=== PATIENT | male | born 1995 ===

== ENCOUNTER 2017-12-04 08:32 | Emergency (ER) | payer OTHER ==
--- NOTE | 2017-12-04 08:43 | UC ---
Respiratory Complaint HPI - HPI Summary HPI Summary: 21 yo male presents with 1 month of sinus pain/pressure/congestion and dry cough. Over the last 4 days has developed a sore throat and b/l ear pain. Has been taking mucinex and zyrtec daily with no relief. Denies fever, chills, SOB, chest pain, abdominal pain, n/v. - History of Current Complaint Stated Complaint: COUGH, SORE THROAT Time Seen by Provider: 12/04/17 08:42 Hx Obtained From: Patient Onset/Duration: Gradual Onset Severity Initially: Mild Severity Currently: Moderate Pain Intensity: 4 Pain Scale Used: 0-10 Numeric Character: Cough: Nonproductive - Allergies/Home Medications Allergies/Adverse Reactions: Allergies Allergy/AdvReac Type Severity Reaction Status Date / Time No Known Allergies Allergy Verified 12/04/17 08:45 Home Medications: Home Medications Cetirizine* [ZyrTEC 10 MG TAB*] 10 mg PO DAILY PRN 12/04/17 [History Confirmed 12/04/17] guaiFENesin [Mucinex] 600 mg PO DAILY PRN 12/04/17 [History Confirmed 12/04/17] PMH/Surg Hx/FS Hx/Imm Hx - Additional Past Medical History Additional PMH: None Previously Healthy: Yes - Surgical History Surgical History: None - Family History Known Family History: Positive: None - Social History Occupation: Student Lives: With Family Alcohol Use: Occasionally Substance Use Type: None Smoking Status (MU): Never Smoked Tobacco Review of Systems Constitutional: Negative Skin: Negative Eyes: Negative ENT: Sore Throat, Ear Ache, Nasal Discharge, Sinus Congestion, Sinus Pain/ Tenderness Respiratory: Cough Cardiovascular: Negative Gastrointestinal: Negative Neurovascular: Negative Neurological: Negative Psychological: Negative All Other Systems Reviewed And Are Negative: Yes Physical Exam - Summary Physical Exam Summary: GENERAL: NAD. WDWN. No pain distress. SKIN: No rashes, sores, lesions, or open wounds. HEENT: Head: AT/NC Eyes: Conjunctiva clear without inflammation or discharge. Ears: Hearing grossly normal. TMs intact, no bulging, erythema, or edema. Nose: Nasal mucosa mildly swollen and erythematous with clear discharge. NTTP maxillary and frontal sinus. Throat: Posterior oropharynx moderate erythema and 2+ tonsillar enlargement. No exudates. Uvula midline. No hoarse voice or muffled voice. NECK: Supple. Nontender. No lymphadenopathy. CHEST: CTAB. No r/r/w. No accessory muscle use. Breathing comfortably and in no distress. CV: RRR. Without m/r/g. Pulses intact. Brisk cap refill. NEURO: Alert. CN II-XII grossly intact. PSYCH: Age appropriate behavior. Triage Information Reviewed: Yes Vital Signs: Vital Signs: Temp Pulse Resp BP Pulse Ox 98.7 F 79 16 156/81 98 12/04/17 08:40 12/04/17 08:40 12/04/17 08:40 12/04/17 08:40 12/04/17 08:40 Respiratory Course/Dx - Course Course Of Treatment: Sinusitis. Pharyngitis - Differential Dx/Diagnosis Provider Diagnoses: Sinusitis. Pharyngitis Discharge - Sign-Out/Discharge Documenting (check all that apply): Discharge/Admit/Transfer - Discharge Plan Condition: Stable Disposition: HOME Prescriptions: Amoxicillin PO (*) [Amoxicillin 500 MG CAP*] 500 mg PO Q12H #14 cap Patient Education Materials: Pharyngitis (ED), Sinusitis (ED) Referrals: No Primary Care Phys,NOPCP [Primary Care Provider] - Additional Instructions: If you develop a fever, shortness of breath, chest pain, new or worsening symptoms - please call your PCP or go to the ED. Your blood pressure was high at todays visit. Please see your primary provider within 4 weeks for recheck and re-evaluation. - Billing Disposition and Condition Condition: STABLE Disposition: HOME
[2017-12-04 08:45] VITALS: BP 156/81
== END 2017-12-04 09:07 | disposition home or self-care (01) ==
LOC: UCEAST 08:32
DX: J02.9 Acute pharyngitis, unspecified (principal); J32.9 Chronic sinusitis, unspecified; H92.03 Otalgia, bilateral
CPT/HCPCS: 99202; G0463

== ENCOUNTER 2017-12-09 19:59 | Emergency (ER) | payer OTHER ==
[2017-12-09 20:56] VITALS: BP 148/81
[2017-12-09] MEDS ORDERED: predniSONE TAB* 20 MG PO ONE (21:19)
[2017-12-09] MEDS ORDERED: Famotidine TAB* 20 MG PO ONE (21:20)
[2017-12-09] MEDS ORDERED: diPHENhydraMINE PO* 50 MG PO ONE (21:20)
--- NOTE | 2017-12-09 21:29 | UC ---
Ifeanyi Gonzalez Julia, scribed for Franco Velasquez MD on 12/09/17 at 2113 . Skin Complaint HPI - HPI Summary HPI Summary: This patient is a 21 year old M presenting to [facility] accompanied by his mother with a chief complaint of diffuse rashes with swelling and pain of the hands, feet, and lips beginning since yesterday. Pain is 4/10 in severity. Patient states he was recently prescribed Amoxicillin for strep-like symptoms including cough and sinus pain on 12/04/17. Patient denies SOB. - History of Current Complaint Chief Complaint: UCRash Time Seen by Provider: 12/09/17 21:07 Stated Complaint: RASH,HIVES,POSS ALLERGIC REACTION Hx Obtained From: Patient Onset/Duration: Lasting Days Skin Exposure Onset/Duration: Days Ago Timing: Constant Pain Intensity: 4 Pain Scale Used: 0-10 Numeric Location: Diffuse - rash, Hand (Right), Hand (Left), Foot (Right), Foot (Left) Character: Hives Aggravating Factor(s): Other - Amoxicillin Alleviating Factor(s): Nothing Associated Signs & Symptoms: Positive: Rash. Negative: Difficulty Breathing Related History: Recent change in medication - Allergy/Home Medications Allergies/Adverse Reactions: Allergies Allergy/AdvReac Type Severity Reaction Status Date / Time No Known Allergies Allergy Verified 12/09/17 20:57 Review of Systems Skin: Rash ENT: Sinus Pain/Tenderness Respiratory: Negative - SOB, Cough Musculoskeletal: Edema - bilateral hands and feet, lips All Other Systems Reviewed And Are Negative: Yes PMH/Surg Hx/FS Hx/Imm Hx Previously Healthy: Yes - recent sinusitis - Surgical History Surgical History: Yes Surgery Procedure, Year, and Place: T&A, shoulder repair, wisdom teeth - Family History Known Family History: Negative: Cardiac Disease - Social History Occupation: Student Alcohol Use: Occasionally Substance Use Type: None Smoking Status (MU): Never Smoked Tobacco Physical Exam - Summary Physical Exam Summary: General: well-appearing, no pain distress Skin: warm, color reflects adequate perfusion, dry, diffuse hives Head: lower lip is mildly swollen Eyes: EOMI, LIZZIE ENT: normal, posterior pharynx benign Neck: supple, nontender Respiratory: CTA, breath sounds present, no respiratory distress Cardiovascular: RRR Abdomen: soft, nontender Bowel: present Musculoskeletal: normal, strength/ROM intact Neurological: sensory/motor intact, A&O x3 Psychological: affect/mood appropriate Triage Information Reviewed: Yes Vital Signs: Initial Vital Signs Temp 98.8 F 12/09/17 20:51 Pulse 78 12/09/17 20:51 Resp 18 12/09/17 20:51 BP 148/81 12/09/17 20:51 Pulse Ox 100 12/09/17 20:51 Vital Signs Reviewed: Yes Course/Dx - Course Course Of Treatment: THE REACTION IS PROBABLY DUE TO AMOXICILLIN. I DISCSSED STOPPING THE AMOX, TAKING BENADRYL, PEPCID AND PREDNISONE NEEDED AND STARTING A ZPAC IF THE BRONCHITIS IS NOT IMPROVED. ALSO DISCUSSED GETTING SEEN AGAIN RIGHT AWAY IF HIS CONDITION WORSENS. - Diagnoses Provider Diagnoses: ALLERGIC REACTION. BRONCHITIS Discharge - Sign-Out/Discharge Documenting (check all that apply): Discharge/Admit/Transfer - Discharge Plan Condition: Stable Disposition: HOME Prescriptions: Azithromyxin DELMAR (NF) [Z-Delmar (Zithromax) 250 mg tabs #6] 2 tab PO .TODAY, THEN 1 DAILY #6 tab Famotidine TAB* [Pepcid 20 MG TAB*] 20 mg PO BID PRN #8 tab PRN Reason: Allergy Symptoms predniSONE TAB* [Deltasone TAB*] 40 mg PO DAILY PRN #8 tab PRN Reason: Allergy Symptoms Patient Education Materials: Acute Bronchitis (ED), General Allergic Reaction ( ED) Referrals: Abhilash Mcintosh MD [Primary Care Provider] - Additional Instructions: FOLLOW UP WITH YOUR DOCTOR. STOP THE AMOXICILLIN. TAKE BENADRYL 50MG EVERY 6 HOURS NEEDED. TAKE PEPCID 20MG TWICE A DAY NEEDED. TAKE PREDNISONE DIRECTED NEEDED. TAKE THE AZITHROMYCIN DIRECTED IF YOUR BRONCHITIS SYMPTOMS DO NOT IMPROVE. GET RECHECKED FOR ANY WORSENING OF YOUR CONDITION OR QUESTIONS OR CONCERNS. - Billing Disposition and Condition Condition: STABLE Disposition: HOME The documentation as recorded by the Ifeanyi emerson Julia accurately reflects the service I personally performed and the decisions made by me, Franco Velasquez MD.
== END 2017-12-09 21:36 | disposition home or self-care (01) ==
LOC: UCEAST 19:59
DX: R21 Rash and other nonspecific skin eruption (principal); R60.0 Localized edema; T78.40XA Allergy, unspecified, initial encounter; X58.XXXA Exposure to other specified factors, initial encounter; J40 Bronchitis, not specified as acute or chronic
CPT/HCPCS: 99212; A9270-GY; G0463; J7512